=== PATIENT | female | born 1960 | race Caucasian/White ===

== ENCOUNTER 2017-10-26 14:39 | Inpatient (IN) | payer MEDICARE, SELFPAY ==
[2017-10-26] VITALS (23 sets, daily range): BP systolic 116–230; BP diastolic 53–115; PULSE 69–88; RESP 15–22; TEMP 36.7–36.8; O2SAT 96–99; BMI 50.5; BMI 50.6
--- NOTE | 2017-10-26 14:43 | NURSING ---
NO OLD EKGS STEMI ALERT CALLED
--- NOTE | 2017-10-26 14:49 | NURSING ---
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
--- NOTE | 2017-10-26 14:53 | ED.DCSUM_ITS ---
- ER Visit Summary Date of Service: 10/26/17 Chief Complaint: Chest pain History of Present Illness: The patient is a 56 F who presents to the emergency department with chest pain. Patient has a history of hypertension and smoking. She states that she woke this morning and was having some pain in her left jaw. She describes it as a squeezing type pain. She states that it would wax and wane and it would become more severe. She states the pain migrated to her chest on the way here. She was nauseated with some shortness of breath. She denies any history of prior [place]. She has had prior stenting of her iliac artery , but no cardiac stenting. She denies any recent stress test or heart catheterization. She states she has never had pain like this before. Physical Examination: Vital signs reviewed General: Well-nourished, well-developed Head: Normocephalic, atraumatic Eyes: Pupils equal and reactive, extraocular muscles intact Neck, supple, no lymphadenopathy Heart: Regular rate and rhythm Respiratory: No distress, clear bilaterally Abdomen: Soft, nontender, nondistended, no peritoneal signs Back: Nontender Extremities: Nontender, no edema, no cords Skin: Normal color no rash Neuro: Alert and oriented, no focal or lateralizing deficits Test Results: EKG demonstrates acute inferior myocardial infarction. Screening labs are pending. Emergency Department Course and Treatment: Patient was identified as an acute STEMI. I did review the EKG and patient was discussed immediately with Dr. Her. She was given aspirin, heparin, and Brilinta. The patient will be transported immediately to the [facility] for attempted angioplasty and revascularization per cardiology. She was transported from the emergency department within 10 minutes. Treatment Plan: [] Disposition: Transfer to [facility] Impression: 1. Acute inferior STEMI This note was generated with [employer] dictation software. It may contain incorrect words, spelling, and punctuation that were not noted in review of the chart prior to signing ED Disposition - Plan for ED Patient: Chief Complaint: Chest Pain
[2017-10-26 14:54] LABS: Absolute Lymphocyte Count 4.62 X10^3/ul (0.83-4.51); Absolute Neutrophil Count 6.6 X10^3/uL (2.0-7.7); Basophil# 0.05 X10^3/uL; Basophil% 0.4 % (0-1); Eosinophil# 0.33 X10^3/uL; Eosinophils% 2.6 % (0-5); Hemoglobin 14.6 g/dl (12.0-15.0); Lymphocyte # 4.62 X10^3/ul (4.0); Lymphocyte % 36.4 % (19-41); Mean Corp Hgb Conc 32.4 g/gl (32-36); Mean Corpuscular Hgb 30.5 pg (27.0-32.0); Mean Corpuscular Volume 94.1 fL (81-99); Mean Platelet Vol. 10.2 fl (6.2-12.0); Monocyte# 1.09 X10^3/uL; Monocyte% 8.6 % (0-10); Neutrophil # 6.57 X10^3/uL (2.7-7.7); Neutrophil % 51.7 % (47-70); Platelet Count 339 K/mm3 (150-450); RBC Distribution Width CV 16.1 % (11.6-14.6); RBC Distribution Width SD 54.4 fl (35.1-43.9); Red Blood Count 4.78 M/mm3 (4.2-5.4); White Blood Count 12.7 K/mm3 (4.4-11.0)
[2017-10-26 14:55] LABS: POSITIVE COUNT NO; POSITIVE DIFFERENTIAL NO; POSITIVE MORPHOLOGY NO
[2017-10-26 15:05] LABS: Prothrombin Time (Protime)PT. 12.8 SECONDS (11.7-14.9)
[2017-10-26 15:11] LABS: Anion Gap 8 (5-15); BUN 12 mg/dL (7-18); BUN/Creat Ratio 10.9 RATIO (10-20); Calcium,Total 8.7 mg/dL (8.5-10.1); Chloride 107 mmol/L (98-107); EST Glomerular Filtration Rate 54 mL/min (>60); Est Glom Filt Rate - Afr Amer 66 mL/min (>60); Glucose 118 mg/dL (74-106); Potassium 3.7 mmol/L (3.5-5.1); Sodium Level 141 mmol/L (136-145)
[2017-10-26 15:34] LABS: Pregnancy, Serum, hCG Quali. NEGATIVE Negative (0-9 Nonpreg)
--- NOTE | 2017-10-26 16:30 | RAD_ITS ---
STUDY: X-RAY CHEST REASON FOR EXAM: Female, 56 years old. Post cardiac catheterization TECHNIQUE: Single frontal view COMPARISON: None. FINDINGS: The lungs are clear and expanded. There is no demonstrated pleural abnormality. Borderline size heart. Normal mediastinum and filippo. Normal visualized pulmonary arteries. Normal visualized aortic arch and descending thoracic aorta. Mild degenerative changes of the thoracic spine. Normal visualized ribs, clavicles, and shoulders. There is no demonstrated abnormality of the visualized soft tissue structures of the upper abdomen. RAD/Chest 1 View (Portable) IMPRESSION: No acute pulmonary pathology. Borderline cardiac shadow. Electronically Signed: Kwasi Colbert DO at 19:15 EDT Tel [phone], Service support ,
--- NOTE | 2017-10-26 16:30 | EKG12_ITS ---
Test Reason : CP Blood Pressure : / mmHG Vent. Rate : 070 BPM Atrial Rate : 070 BPM P-R Int : 130 ms QRS Dur : 092 ms QT Int : 422 ms P-R-T Axes : 068 056 082 degrees QTc Int : 455 ms AGE AND GENDER SPECIFIC ECG ANALYSIS Normal sinus rhythm with sinus arrhythmia Inferior infarct , possibly acute ACUTE [place] / STEMI Confirmed by RICKY GARCIA, TANK ([id number]), editorial cartoonist DARION CARLOS ([id number]) on 11/06/2017 2:07:12 PM Referred By: Oneal Her Confirmed By:TANK GARCÍA MD
--- NOTE | 2017-10-26 17:00 | EKG12_ITS ---
Test Reason : POST PCI Blood Pressure : / mmHG Vent. Rate : 067 BPM Atrial Rate : 067 BPM P-R Int : 136 ms QRS Dur : 084 ms QT Int : 428 ms P-R-T Axes : 063 063 060 degrees QTc Int : 452 ms Normal sinus rhythm with sinus arrhythmia Normal ECG When compared with ECG of 26-OCT-2017 14:40, MANUAL COMPARISON REQUIRED, DATA IS UNCONFIRMED Confirmed by RICKY GARCIA, TANK ([id number]), greeting card editor DARION CARLOS ([id number]) on 10/31/2017 1:50:28 PM Referred By: Oneal Her Confirmed By:TANK GARCÍA MD
[2017-10-26 17:06] LABS: ACT Activated Clotting Time 191 sec (74-137)
[2017-10-26 17:06] LABS: ACT Activated Clotting Time 180 sec (74-137)
[2017-10-26 17:06] LABS: ACT Activated Clotting Time 186 sec (74-137)
[2017-10-26 17:44] LABS: CPK Total, Creatine Kinase 50 U/L (26-192)
[2017-10-26 17:55] LABS: Hematocrit 41.5 % (37-47); Hemoglobin 13.4 g/dl (12.0-15.0); Mean Corp Hgb Conc 32.3 g/gl (32-36); Mean Corpuscular Hgb 30.3 pg (27.0-32.0); Mean Corpuscular Volume 93.9 fL (81-99); Mean Platelet Vol. 10.5 fl (6.2-12.0); Platelet Count 310 K/mm3 (150-450); RBC Distribution Width SD 53.6 fl (35.1-43.9); Red Blood Count 4.42 M/mm3 (4.2-5.4); White Blood Count 9.6 K/mm3 (4.4-11.0)
[2017-10-26 18:03] LABS: Scan Indicated on CBC? Y/N NO
--- NOTE | 2017-10-26 18:04 | PCM.HP.STD ---
Problem List (1) CAD (coronary artery disease) Status: Chronic (2) Hypertension Status: Chronic (3) Obesity Status: Chronic History of Present Illness Date of Admission: 10/26/17 Chief Complaint: Chest pain The patient is a 56 year old F with past medical history of coronary artery disease post previous stenting RCA and hypertension who presented to the emergency room with chief complaint of midsternal chest pain. It started as a squeezing left jaw pain when she woke up this morning , she then later developed midsternal chest pain and then decided to come to the emergency room for evaluation. Was associated with nausea and shortness of breath. Emergency room she was noted to have ST elevation myocardial infarction and she was immediately sent to the heart catheterization suite and underwent left heart catheterization showing in-stent stenosis of her distal RCA for which she underwent PCI with stent placement. She was then transferred to the ICU for further management. When I saw her then, she denied any chest pain, shortness of breath or palpitations. Her blood pressure was significantly elevated and she was placed on nitroglycerin drip. Past Medical History Past Medical History (Chronic Problems): Chronic Problems CAD (coronary artery disease) (Chronic) Hypertension (Chronic) Obesity (Chronic) Allergies No Known Allergies Allergy (Verified 04/27/17 23:18) Home Medications: Ambulatory Orders Medication Instructions Recorded Metoprolol(XL)Succ [Toprol Xl 25 mg PO BID 04/27/17 (Beta Roque)] Albuterol Inhaler [Ventolin Hfa 2 puff INHALATION Q4H PRN PRN 10/26/17 (SP)] Smoking Status: Current every day smoker - *Family History Maternal History Items: No pertinent history Review of Systems Comment: All Systems were reviewed with pertinent positives mentioned in the HPI above. VTE Information - Inpt Only VTE Present on Admission: No - Physical Exam General: Alert, Oriented x3 HEENT: Atraumatic Oral: Moist Mucosa Neck: Supple, No JVD Lungs: Clear to auscultation Cardiovascular: Regular rate, Normal S1, Normal S2 Abdomen: Bowel Sounds Present, Soft Extremities: No edema Vital Signs Pulse Resp BP 69 15 171/86 H 10/26/17 17:21 10/26/17 14:42 10/26/17 17:21 Oxygen Flow Rate (L/min) 2 Oxygen Delivery Method Nasal Cannula Weight: 121.4 kg Body Mass Index (BMI) 50.5 Laboratory Tests Past 24 Hrs 10/26/17 10/26/17 10/26/17 16:08 16:35 16:45 WBC RBC Hgb Hct MCV MCH MCHC RDW RDW Differential Plt Count MPV Activated Clotting Time 186 H 191 H 180 H Total Creatine Kinase MRSA (PCR) 10/26/17 10/26/17 10/26/17 17:00 17:10 17:10 WBC 9.6 RBC 4.42 Hgb 13.4 Hct 41.5 MCV 93.9 MCH 30.3 MCHC 32.3 RDW 16.0 H RDW Differential 53.6 H Plt Count 310 MPV 10.5 Activated Clotting Time Total Creatine Kinase 50 MRSA (PCR) Pending Assessment/Plan 1. Acute STEMI; s/p PTCA with stenting of RCA, we will continue on guideline directed medical therapy. 2. CAD s/p previous RCA stent, she is found to have in-stent stenosis and has been restented as above. She is recommended to comply with medical therapy and quit smoking, we will obtain fasting lipids in a.m. 3. Essential hypertension, uncontrolled; the patient has been started on Coreg and lisinopril, will attempt to wean off the nitro drip. 4. Nicotine dependency; she is recommended to quit smoking, she is in precontemplation stage of change, we will place her on nicotine transdermal patch. 5. Morbid Obesity; the patient is recommended to lose weight. 6. DVT prophylaxis with Lovenox.
[2017-10-26] MEDS: diazePAM 5 MG Tablet PO (18:56)
[2017-10-26] MEDS: Nitrofurantoin Macrocrystals 100 MG Capsule PO (20:59)
[2017-10-26] MEDS: Carvedilol 6.25 MG Tablet PO (21:00)
[2017-10-26] MEDS: TICAGRELOR 90 MG TABLET PO (21:00)
[2017-10-26] MEDS: Atorvastatin Calcium 80 MG Tablet PO (21:00)
[2017-10-26 21:06] LABS: M R Staph aureus DNA By PCR Negative (Negative); Probe Check PASS; Specimen Processing Control PASS
[2017-10-26 22:15] LABS: ACT Activated Clotting Time 142 sec (74-137)
[2017-10-26 23:09] LABS: Hematocrit 38.1 % (37-47); Hemoglobin 12.3 g/dl (12.0-15.0); Mean Corp Hgb Conc 32.3 g/gl (32-36); Mean Corpuscular Hgb 30.3 pg (27.0-32.0); Mean Corpuscular Volume 93.8 fL (81-99); Mean Platelet Vol. 10.3 fl (6.2-12.0); Platelet Count 250 K/mm3 (150-450); RBC Distribution Width CV 15.9 % (11.6-14.6); RBC Distribution Width SD 53.6 fl (35.1-43.9); Red Blood Count 4.06 M/mm3 (4.2-5.4); White Blood Count 11.1 K/mm3 (4.4-11.0)
[2017-10-26 23:11] LABS: Scan Indicated on CBC? Y/N NO
[2017-10-26 23:34] LABS: CPK Total, Creatine Kinase 58 U/L (26-192)
[2017-10-27] VITALS (22 sets, daily range): BP systolic 105–159; BP diastolic 44–80; PULSE 77–95; RESP 14–25; TEMP 36.4–37.2; O2SAT 92–97
[2017-10-27 01:21] LABS: Bedside Glucose 130 mg/dL (70-110)
[2017-10-27] MEDS: diazePAM 5 MG Tablet PO ×2 (02:16→08:50)
[2017-10-27 02:51] LABS: Bedside Glucose 130 mg/dL (70-110)
[2017-10-27] MEDS: 0.9% NaCl Peripheral Flush Adult/Peds IV (04:27)
[2017-10-27 04:36] LABS: Hematocrit 37.6 % (37-47); Hemoglobin 12.2 g/dl (12.0-15.0); Mean Corp Hgb Conc 32.4 g/gl (32-36); Mean Corpuscular Hgb 30.4 pg (27.0-32.0); Mean Corpuscular Volume 93.8 fL (81-99); Platelet Count 260 K/mm3 (150-450); RBC Distribution Width CV 15.9 % (11.6-14.6); RBC Distribution Width SD 52.9 fl (35.1-43.9); Red Blood Count 4.01 M/mm3 (4.2-5.4); Scan Indicated on CBC? Y/N NO; White Blood Count 9.8 K/mm3 (4.4-11.0)
[2017-10-27 04:50] LABS: CPK Total, Creatine Kinase 62 U/L (26-192)
[2017-10-27 04:53] LABS: Anion Gap 9 (5-15); BUN 13 mg/dL (7-18); Calcium,Total 7.9 mg/dL (8.5-10.1); Chloride 109 mmol/L (98-107); Cholesterol 171 mg/dL (200); EST Glomerular Filtration Rate 61 mL/min (>60); Est Glom Filt Rate - Afr Amer 74 mL/min (>60); Glucose 141 mg/dL (74-106); High Density Lipoprotein 37 mg/dL; Potassium 3.8 mmol/L (3.5-5.1); Sodium Level 141 mmol/L (136-145); Triglycerides 111 mg/dL; Very Low Density Lipoprotein 22 mg/dL (5-40)
--- NOTE | 2017-10-27 05:55 | EKG12_ITS ---
Test Reason : AM EKG Blood Pressure : / mmHG Vent. Rate : 087 BPM Atrial Rate : 087 BPM P-R Int : 138 ms QRS Dur : 084 ms QT Int : 408 ms P-R-T Axes : 059 047 059 degrees QTc Int : 490 ms Normal sinus rhythm Prolonged QT Abnormal ECG When compared with ECG of 26-OCT-2017 14:40, MANUAL COMPARISON REQUIRED, DATA IS UNCONFIRMED Confirmed by RICKY GARCIA, TANK ([id number]), technical editor DARION CARLOS ([id number]) on 10/31/2017 1:50:01 PM Referred By: Oneal Her Confirmed By:TANK GARCÍA MD
[2017-10-27] MEDS: Acetaminophen 325 MG Tablet PO (07:50)
[2017-10-27] MEDS: CHLORHEXIDINE GLUC 2% CLOTH 1 EACH TOWELETTE TOPICAL (07:51)
[2017-10-27] MEDS: Aspirin E.C. 81 MG Tablet PO (07:51)
[2017-10-27] MEDS: TICAGRELOR 90 MG TABLET PO (08:50)
[2017-10-27] MEDS: Carvedilol 6.25 MG Tablet PO (08:50)
--- NOTE | 2017-10-27 08:51 | CRPHASE1 ---
Patient Data/Charges Information Resources Manager:: Oneal Her PCP:: Taye Carrillo Date/Diagnosis #1:: Cath w/Int/PCI Risk Factors/Lifestyle Smoking Status: Current every day smoker Hx Hypertension: Yes Hx Diabetes Mellitus Type 2: Yes - Pre diabetic Hx Metabolic Disorders: Yes Hx Obesity: Yes Weight:: 121 kg Risk Factor for Sedentary Lifestyle: Highest Risk Family History: Cancer, Heart Disease Past Cardiac Illness: Coronary Artery Disease, Previous PCI w/Stent Laboratory Values: Cardiac Rehab Phase I Labs Triglycerides 111 mg/dL (-199) 10/27/17 04:25 Cholesterol 171 mg/dL (200) 10/27/17 04:25 LDL Cholesterol 112 mg/dL (0-130) 10/27/17 04:25 HDL Cholesterol 37 mg/dL (40-) L 10/27/17 04:25 Phase I Education Given On:: Nutrition, Antiplatelet medication Issues Affecting Care:: None Knowledge of Condition:: Yes - needs reinforcment Hospital Course Presenting Symptoms:: jaw pain, sweating Medical/Surgical History [place]:: No Angina:: Yes CAD:: Yes COPD:: No Asthma:: No Diabetes Type II:: Yes - pre-diabetic Hypertension:: Yes PE:: No PVD:: Yes Arthritis:: Yes GI:: No GERD:: No Cancer:: No Renal:: Yes - kidney stones Thyroid:: No CABG: No PTCA:: Yes Pacemaker:: No Orthopedic:: Yes - degenerative joint disease Discharge/Home/Social Eval Discharge Disposition: Home Marital Status:
--- NOTE | 2017-10-27 08:57 | CRPHASE1_ITS ---
Patient Data/Charges Carpet Installer Helper:: Oneal Her PCP:: Taye Carrillo Date/Diagnosis #1:: Cath w/Int/PCI Risk Factors/Lifestyle Smoking Status: Current every day smoker Hx Hypertension: Yes Hx Diabetes Mellitus Type 2: Yes - Pre diabetic Hx Metabolic Disorders: Yes Hx Obesity: Yes Weight:: 121 kg Risk Factor for Sedentary Lifestyle: Highest Risk Family History: Cancer, Heart Disease Past Cardiac Illness: Coronary Artery Disease, Previous PCI w/Stent Laboratory Values: Cardiac Rehab Phase I Labs Triglycerides 111 mg/dL (-199) 10/27/17 04:25 Cholesterol 171 mg/dL (200) 10/27/17 04:25 LDL Cholesterol 112 mg/dL (0-130) 10/27/17 04:25 HDL Cholesterol 37 mg/dL (40-) L 10/27/17 04:25 Phase I Education Given On:: Nutrition, Antiplatelet medication Issues Affecting Care:: None Knowledge of Condition:: Yes - needs reinforcment Hospital Course Presenting Symptoms:: jaw pain, sweating Medical/Surgical History [place]:: No Angina:: Yes CAD:: Yes COPD:: No Asthma:: No Diabetes Type II:: Yes - pre-diabetic Hypertension:: Yes PE:: No PVD:: Yes Arthritis:: Yes GI:: No GERD:: No Cancer:: No Renal:: Yes - kidney stones Thyroid:: No CABG: No PTCA:: Yes Pacemaker:: No Orthopedic:: Yes - degenerative joint disease Discharge/Home/Social Eval Discharge Disposition: Home Marital Status:
--- NOTE | 2017-10-27 08:59 | CRPH1.INST_ITS ---
General Education CAD and cardiac anatomy and function:: Needs reinforcement Explanation of diagnoses and procedures:: Needs reinforcement Sign/Symptoms of [place]:: Not instructed Antiplatelet therapy: Needs reinforcement Proper use of NTG-SL: Needs reinforcement Emergency procedures and activation of EMS: Patient communicates acknowledgment , Needs reinforcement Compliance of all prescribed medications: Patient communicates acknowledgment Smoking Patient Nicotine/Smoking Risk Factors Are:: Cigarettes Nicotine/Smoking Response Code:: Not instructed Dyslipidemia Recommendations Include:: Lipid profile not available Overweight/Obesity Patient Overweight/Obesity Risk Factors Are:: Obesity - > or = 30 Overweight/Obesity:: Not instructed Hypertension Hypertension:: Needs reinforcement Heart Disease Patient Heart Disease Risk Factors Are:: Family history of heart disease < 65 years old - mother, Previous cardiac event - stent 2010 Heart Disease Response Code:: Needs reinforcement Diabetes Patient Diabetes Risk Factors Are:: Elevated blood sugars - pt states pre diabetic Metabolic Syndrome Metabolic Syndrome Response Code:: Needs reinforcement Sedentary Patient Sedentary Risk Factors Are:: Lack of regular exercise Sedentary Response Code:: Needs reinforcement Stress Stress Response Code:: Not instructed
[2017-10-27] MEDS: HYDROcodone Bitartrate/Apap 5/325 Tablet PO ×2 (09:32→14:14)
--- NOTE | 2017-10-27 09:33 | DCINST_ITS ---
- Discharge Diagnoses Current Active Problems: Current Active and Chronic Problems CAD (coronary artery disease) (Chronic) Hypertension (Chronic) Obesity (Chronic) Reason(s) for Visit for Discharge Instructions: Chest pain You will use the following diet at home:: Calorie/Carbohydrate Controlled ( specify 1200, 1400, etc), Cardiac Your food should be the consistency of: Regular Your liquids should be the consistency of: Regular/Thin Discharge Activity: Return to Normal Activity Additional Instructions: You are strongly advised to stop smoking. Take all your medications as prescribed. Follow-up with DR. Her and your primary care doctor. Follow all instructions for post heart attack. You need to lose weight and have your doctor keep an eye on your blood glucose by repeating testing in the office. Allergies/Adverse Reactions: Allergies No Known Allergies Allergy (Verified 04/27/17 23:18) Medications to take at Discharge Albuterol Inhaler [Ventolin Hfa] 2 puff INHALATION Q4H PRN PRN 10/26/17 Aspirin E.C. [Ecotrin] 81 mg PO DAILY@0800 #30 tab 10/27/17 Atorvastatin Calcium [Lipitor] 80 mg PO QHS #30 tab 10/27/17 Carvedilol [Coreg (Beta Roque)] 6.25 mg PO BID #60 tab 10/27/17 Ticagrelor [Brilinta] 90 mg PO BID #60 tab 10/27/17 Tramadol HCl [Ultram] 50 mg PO 4X/DAY PRN #20 tab 10/27/17 Valsartan [Diovan] 80 mg PO DAILY #30 tab 10/27/17 The following prescriptions were given: Aspirin E.C. [Ecotrin] 81 mg PO DAILY@0800 #30 tab Atorvastatin Calcium [Lipitor] 80 mg PO QHS #30 tab Valsartan [Diovan] 80 mg PO DAILY #30 tab Carvedilol [Coreg (Beta Roque)] 6.25 mg PO BID #60 tab Ticagrelor [Brilinta] 90 mg PO BID #60 tab Tramadol HCl [Ultram] 50 mg PO 4X/DAY PRN #20 tab PRN Reason: Pain Primary Care Physician: Taye Carrillo MD [Primary Care Provider] - Please follow up with your Primary Care Physician in: within 2 weeks Please Follow Up With: Oneal Her MD When: as scheduled Please Follow Up With: Delfino Bonilla MD When: within 2 weeks Proposed Discharge Date: 10/27/17
--- NOTE | 2017-10-27 09:54 | ECHOCS_ITS ---
Reason For Study: CAD/ASHD Procedure This was a 2D Doppler, Color Flow transthoracic echocardiogram. Exam performed portable in ICU/CCU. Left Ventricle Mild concentric left ventricular hypertrophy. The estimated ejection fraction is 65 %. Stage 1 diastolic dysfunction. No regional wall motion abnormalities noted. Right Ventricle Normal size and thickness. Normal systolic function. Atria Normal left atrium. Normal right atrium. Normal atrial septum. Mitral Valve The mitral valve is structurally normal. No prolapse or stenosis seen. Tricuspid Valve Normal tricuspid valve. No tricuspid valve insufficiency. Unable to estimate RV systolic pressure/pulmonary artery pressure due to technically difficult study. Aortic Valve Normal aortic valve. Trisinus/trileaflet aortic valve. Pulmonic Valve Normal pulmonic valve. Great Vessels Normal aortic root. Normal arch. Normal inferior vena cava. Inferior vena cava collapse with sniff. Pericardium/Pleural No pericardial effusion. Medication Definity0.3ml given slow IV push to enhance endocardial definition. MMode/2D Measurements & Calculations LVIDd: 4.2 cm IVSd: 1.3 cm Ao root diam: 3.0 cm LVIDs: 2.2 cm LVPWd: 1.2 cm LA dimension: 4.0 cm RVDd: 3.7 cm FS: 48.4 % LAV(MOD-bp): 33.9 ml LA A4 area: 13.7 cm2 RA A4 area: 10.8 cm2 LAV(MOD-bp) Indexed: 15.9 ml/m2 LAV(MOD-sp2): 38.3 ml LAV(MOD-sp4): 30.1 ml Doppler Measurements & Calculations MV E max charlie: 86.8 cm/sec Lat Peak E' Charlie: 9.7 cm/sec Med Peak E' Charlie: 6.6 cm/sec MV A max charlie: 107.9 cm/sec E/E' lat: 9.0 E/E' med: 13.2 MV E/A: 0.80 Ao V2 max: 145.5 cm/sec LV V1 max: 119.5 cm/sec PA V2 max: 76.1 cm/sec Ao max P.5 mmHg LV V1 max P.7 mmHg Ao V2 mean: 100.3 cm/sec Ao mean P.6 mmHg Ao V2 VTI: 27.8 cm Interpretation Summary Mild concentric left ventricular hypertrophy. The estimated ejection fraction is 65 %. Stage 1 diastolic dysfunction. Unable to estimate RV systolic pressure/pulmonary artery pressure due to technically difficult study. There is no comparison study available. Ordering Physician: Oneal Her Referring Physician: Taye Carrillo Performed By: Lauren Aguilar RDCS, RVT
--- NOTE | 2017-10-27 10:00 | PN.CARD_ITS ---
Subjectve: Patient doing well this morning, no further chest pain. Nitro drip weaning off. CKs are negative. Bilateral groins are clean/dry/intact, without thrills or bruits. Left brachial artery is somewhat tender but no evidence of hematoma , and excellent 2+ pulses in her radial area. EKG shows normal sinus rhythm with complete resolution of inferior ST segment elevation. Hemoglobin and creatinine are within nominal limits. Objective: Vital Signs Temp Pulse Resp BP Pulse Ox 98.0 F 89 16 105/73 97 10/27/17 07:00 10/27/17 08:00 10/27/17 08:00 10/27/17 09:00 10/27/17 08:00 Oxygen Flow Rate (L/min) 2 Oxygen Delivery Method Room Air Weight: 266 lb 12.149 oz Body Mass Index (BMI) 50.5 Intake and Output for Last 24 Hours 10/25/17 10/26/17 10/27/17 23:59 23:59 23:59 Intake Total 1605.5 / 1605.5 135.6 / 135.6 Output Total 950 / 950 250 / 250 Balance 655.5 / 655.5 -114.4 / -114.4 General: Awake, Alert, Oriented x 3 HEENT: PERRL, EOMI, Sclera Non Icteric Neck: Supple, Good ROM, No Lymph Node Enlargement Lungs: Clear to auscultation Cardiovascular: Regular Rhythm, Normal S1, Normal S2, No Murmurs, No Rubs, No Gallops Vascular: No Carotid Bruits, Normal Femoral Pulses, Normal Radial Pulses, Normal Dorsalis Pedal Pulse, Normal Posterior Tibial Pulses Abdomen: Bowel Sounds Present, Soft, Non Tender, No HSM, No Organomegaly Extremities: No Cyanosis, No Clubbing, No edema Neurological: No Focal Motor or Sensory Deficit 10/26/17 17:10: WBC 9.6, RBC 4.42, Hgb 13.4, Hct 41.5, MCV 93.9, MCH 30.3, MCHC 32.3, RDW 16.0 H, RDW Differential 53.6 H, Plt Count 310, MPV 10.5 10/26/17 22:45: WBC 11.1 H, RBC 4.06 L, Hgb 12.3, Hct 38.1, MCV 93.8, MCH 30.3, MCHC 32.3, RDW 15.9 H, RDW Differential 53.6 H, Plt Count 250, MPV 10.3 10/27/17 04:25: Sodium 141, Potassium 3.8, Chloride 109 H, Carbon Dioxide 23.0, Anion Gap 9, BUN 13, Creatinine 1.00, Est GFR (MDRD) Af Amer 74, Est GFR (MDRD) Non-Af 61, BUN/Creatinine Ratio 13.0, Glucose 141 H, Calcium 7.9 L, Triglycerides 111, Cholesterol 171, LDL Cholesterol 112, VLDL Cholesterol 22, HDL Cholesterol 37 L 10/27/17 04:25: WBC 9.8, RBC 4.01 L, Hgb 12.2, Hct 37.6, MCV 93.8, MCH 30.4, MCHC 32.4, RDW 15.9 H, RDW Differential 52.9 H, Plt Count 260, MPV 10.0 Rhythm: EKG: ECHO: Pending Stress Test: Cardiac Cath: PCI: CT Surgery: Holter monitor: EPS: PPM: CXR: Chest CT Scan: Medical Necessity - Tobacco Use Smoking Status: Current every day smoker Assessment/Plan 1. Acute coronary syndrome: The patient had hypertensive induced acute coronary syndrome with dynamic inferior ST segment elevation and critical distal RCA stenosis just downstream from a previously placed stent several years ago. The patient's case was prolonged and complicated due to what appears to be severe bilateral common iliac stenoses requiring us to emergently go through her left brachial area. All access sites are clean/dry/intact, and her CKs are negative. We are currently weaning her off her nitroglycerin drip and initiating Coreg, Diovan, Brilinta and baby aspirin. She will undergo a 2D echo with Doppler today, but her LV function was intact at the end of the procedure last evening, and hope is that it will remain normal given the fact that she had no CK release. We will attempt to wean the patient off her nitroglycerin drip, and if her blood pressure is acceptable we will discharge her later on today. She will follow-up with me going forward. She requires no further catheterization, angioplasty, stress test or other evaluation. 2. Peripheral vascular disease: Recommend the patient be set up to see Dr. Bonilla for a diagnostic peripheral angiogram and/or vascular surgery given her history of claudication symptoms and previous iliac stent on the left side according the patient. Recommend she be remain on baby aspirin and Brilinta going forward. 3. Hyperlipidemia: Patient requires aggressive LDL reduction given her cardiovascular disease. We initiated Lipitor 80 mg p.o. nightly, and we will repeat profile in 6 weeks time. 4. Tobacco cessation: I had a long and thorough discussion with the patient regarding tobacco cessation, and strongly recommended that she quit tobacco altogether. Patient is voiced understanding and agrees to comply. 5. Patient may be discharged home later today when she has been off her nitroglycerin if blood pressure is stable, and after echocardiogram is been completed. Thank you very much for the opportunity to precipitate the cardiac care of your patient. She will follow-up with us in the office going forward in 2 weeks time. Code Visit Inpatient E&M: 99965 Subs Hosp L2
[2017-10-27 10:05] LABS: Hemoglobin A1c 6.3 % (4.2-6.3)
--- NOTE | 2017-10-27 10:34 | NURSING ---
Echo in progress
--- NOTE | 2017-10-27 11:29 | CASEMGMT ---
See RN CM Assessment Link. DC PLAN: Home on discharge. -Intro role of CM to patient and her . She is disabled, has MCR but did not sign up for MCR part D due to cost. -[employer] savings card given to pt for 30 day free trial. -Spoke w/pt re: applying for AIDEE. Pt states due to her also not working, their household income is around $1100. Call to [employer]. They will see pt after lunch and assist with aidee application. Scott SHAHN RN ACM
--- NOTE | 2017-10-27 12:37 | CL.I_ITS ---
Patient Name: CLAUDIA LOGAN Study Date: 10/26/2017 Performing: Oneal Her MD Ht: inches cm : 1960 Wt: 235.3 lbs 106.59 kg Age: 56 Gender: female BSA: PROCEDURE(S) PERFORMED [id number]/COR/LV [id number], ANDRES AND/OR PTCA, ARTERY OR GRAFT, SINGLE VESSEL CLINICAL PROFILE AND CO-MORBIDITIES Patient presents with STEMI for emergent cardiac cath. INDICATIONS: Unstable Angina Stress/Imaging Stress/Image Study Performed: No Angina Classification Anginal Classification w/in 2 Weeks: CCS IV Comorbidities/Risk Factors: Hypertension Current/Recent Smoker (< 1year) Dyslipidemia Prior PCI Peripheral Arterial Disease CONCLUSIONS Normal Left Ventricular systolic function Non obstructive coronary arteries Single vessel CAD of the distal RCA with distal ISR prior to bifurcation of PDA. Successful PTCA/ANDRES of the distal RCA with a 2.5 x 8 Promus Synergy; 85%-->0%, no dissection. RECOMMENDATIONS Referred for immediate PCI ASA Indefinitely Highly recommend quitting all tobacco products Follow up with primary photographic machine operator Risk factor modification ASA Indefinitley Plavix for at least 12 months Routine post interventional care Refer for Outpatient Cardiac Rehab Manual sheath removal per protocol Follow up with Dr. Her Pt had prolonged revascularization due to severe bilateral femoral artery access challenges. Pt had previous left iliac stent which appears to be occluded and unable to cannulate RFA despite glide wire , majic torque. Pt appears to have bilat iliac occlusion or at least severe PVD. Emergent PCI perfo rmed via emergent access to left brachial approach. DESCRIPTION OF PROCEDURE The patient arrived to the procedure lab. The risks and benefits of the procedure as well as a full d escription of our services here and lack of surgical backup were fully explained to the patient and/o r their significant other prior to the catheterization. The Timeout was completed, verifying the jimmie ect patient and procedure. The patient's procedural site was prepped and draped in the usual fashion. Local anesthetic was given subcutaneously to right groin region with Lidocaine 2%. Local anesthetic was given subcutaneously to left groin region with Lidocaine 2%. Local anesthetic was given subcutane ously to right groin region with Lidocaine 2%. Local anesthetic was given subcutaneously to left brac hial region with Lidocaine 2%. Using a modified Seldinger technique, arterial access was obtained via the left femoral artery, a 4Fr sheath was inserted, arterial access was obtained via the left brachi al artery, a 6Fr sheath was inserted.. Left Coronary Artery selective angiography was performed in m ultiple views using a 4 Fr. JL5 catheter. Right Coronary Artery selective angiography was then perfor med in multiple views using a 4 Fr. 3DRC catheter. Left Ventriculography was performed in CRAVEN project ion using a 4 Fr. Pigtail catheter. LV to AO pullback pressures were then recorded HS II Guide catheter was inserted and engaged into the RCA. runthrough Guide wire was advanced to the RCA. emerge 2.0x12 Balloon catheter was inserted. PTCA balloon inflated at 8 atms for 10 secs synerg y 2.5x8 Drug Eluting stent was inserted Angiogram performed pre stent deployment. Angiogram performed post stent deployment.. . The arterial sheath was pulled and manual compression applied until hemos tasis is achieved. left femoral. The arterial sheath was left in to be pulled in the unit / patient r oom- left brachial. CORONARY ANGIOGRAPHY DOMINANCE: Right Dominant LEFT HEART ASSESSMENT Left Ventricular Ejection Fraction: by LV Gram 65 % Elevated Left Ventricular End Diastolic Pressure Normal LV wall motion. Normal LV wall motion LEFT MAIN: Angiographically normal LEFT ANTERIOR DECENDING ARTERY: Mild luminal irregularities less than 30% CIRCUMFLEX ARTERY: Mild luminal irregularities less than 30% RIGHT CORONARY ARTERY: PROX RCA: 40 % Stenosis MID RCA: Mild luminal irregularities less than 30% DISTAL RCA: 85 % Stenosis INTERVENTION INFORMATION LESION SITE: RCA (Distal) Lesion Complexity: High/C, lesion at bifurcation: No, thrombus present: No, lesion length: 8 mm, danielle rit lesion: Yes, In-stent restenosis: Yes Pre Stenosis: 85 % Pre intervention LAN flow: 3 PROCEDURE: Drug Eluting Stent with pre dilatation. Post Stenosis: 0 % Post intervention LAN flow: 3 Lesion Devices: Frank Sci EMERGE MR 2.00x12 BALLOON Frank Sci Synergy MR ANDRES 2.50x08 COMPLICATIONS No Complications PROCEDURE MEDICATIONS Versed 1 mg IV Fentanyl 25 mcg IV Fentanyl 25 mcg IV Oxygen: 2 L/min via nasal cannula Brilinta 180 mg PO 10/26/2017 14:55:07 Baby Aspirin (81mg) 4 Tabs PO @ 10/26/2017 16:23:09 Heparin 6000 unit(s) IV 10/26/2017 15:40:47 Nitro 200 mcg IC 10/26/2017 15:52:30 Nitro glycerin 25mg / 250ml D5W @ 5 mcg/min IV started 10/26/2017 15:54:09 Nitro 200 mcg IC 10/26/2017 15:57:34 Nitro glycerin 25mg / 250ml D5W @ 10 mcg/min increased rate 10/26/2017 16:33:54 Nitro Tab 0.4 mg PO 10/26/2017 16:34:09 IV Bolus: .9 NaCl 1200 ml total 10/26/2017 15:15:32 SUMMARY OF HEMODYNAMIC DATA Time AIR REST ECG 14:53:51 AO 186/97 (134) SA 15:33:36 LV 192/11, 37 16:03:20 LV 188/9, 40 16:03:27 LVp 195/7, 34 16:03:37 AOp 190/96 (135) 16:03:42 ECG 16:20:31 AO 210/108 (147) 16:22:18 Signed By Oneal Her MD On 10/27/2017 12:37:13 Oneal Her MD
--- NOTE | 2017-10-27 14:04 | PCM.DC.SUM ---
Discharge Date and Diagnosis Date of Admission: 10/26/17 Date of Discharge: 10/27/17 - Primary Discharge Diagnosis Acute STEMI Hypertension, uncontrolled Hyperglycemia - Secondary Discharge Diagnosis Chronic Problems CAD (coronary artery disease) (Chronic) Hypertension (Chronic) Obesity (Chronic) Hospital Course and Treatment Imaging Results: 10/27/17 09:54 Echo Complete W/ Contrast [ECHO] Routine Cardiology Operations: None Procedures: 2-D Echocardiogram, Cardiac catheterization Summary of Care Provided: The patient is a 56 year old F with PMHx of CAD status post stent, hypertension, chronic nicotine use disorder who comes to the ED on 10/26/2017 with complaints of squeezing chest pain that radiated to the jaw, waxes and wanes. Patient was seen in the ED and had a EKG showing inferior [place]. A STEMI alert was called and patient was sent to the cardiac labor and delivery registered nurse. Findings showed single-vessel 85% stenosis of distal RCA, status post drug-eluting stent placement. Of note is that the brush sander was not able to approach the coronaries through the groin because of bilateral peripheral artery stenosis, patient will need to follow-up with Dr. Bonilla in the outpatient. Left brachial artery approach was used. Patient was counseled to avoid smoking. More than 5 minutes was spent in counseling the patient. She was offered nicotine patch and other replacements. She declined all of them on account of poor financial status. In this admission, prescription assistance was sought by drug abuse social worker, and patient had a Medicaid application done. Discharge Diet: Low fat/ Low Cholesterol, 2000 mg Sodium Diet Discharge Activity: Return to Normal Activity Home Medications: Medications to take at Discharge Albuterol Inhaler [Ventolin Hfa] 2 puff INHALATION Q4H PRN PRN 10/26/17 Aspirin E.C. [Ecotrin] 81 mg PO DAILY@0800 #30 tab 10/27/17 Atorvastatin Calcium [Lipitor] 80 mg PO QHS #30 tab 10/27/17 Carvedilol [Coreg (Beta Roque)] 6.25 mg PO BID #60 tab 10/27/17 Ticagrelor [Brilinta] 90 mg PO BID #60 tab 10/27/17 Tramadol HCl [Ultram] 50 mg PO 4X/DAY PRN #20 tab 10/27/17 Valsartan [Diovan] 80 mg PO DAILY #30 tab 03/23/18 Following Prescrptions Were Given to Patient: Aspirin E.C. [Ecotrin] 81 mg PO DAILY@0800 #30 tab Atorvastatin Calcium [Lipitor] 80 mg PO QHS #30 tab Valsartan [Diovan] 80 mg PO DAILY #30 tab Carvedilol [Coreg (Beta Roque)] 6.25 mg PO BID #60 tab Ticagrelor [Brilinta] 90 mg PO BID #60 tab Tramadol HCl [Ultram] 50 mg PO 4X/DAY PRN #20 tab PRN Reason: Pain Primary Care Physician: Taye Carrillo MD [Primary Care Provider] - Please follow up with your Primary Care Physician in: within 2 weeks Please Follow Up With: Oneal Her MD When: as scheduled Please Follow Up With: Delfino Bonilla MD When: within 2 weeks Disposition: Home Minutes spent on discharge:: 25 Patient Condition:: Stable Medical Necessity - Tobacco Use Smoking Status: Current every day smoker Tobacco Use: Cigarettes Meaningful Use Info Meaningful Use Diagnoses (Choose all that apply): AMI - AMI Aspirin given w/in 24hrs of arrival?: Yes ASA at discharge?: Yes Statins at discharge?: Yes Donnie/ARB at discharge?: Yes Beta Roque at discharge?: Yes Done w/ Acute [place] measure.: Yes - CHF DONNIE/ARB ordered at discharge?: Yes Code Visit Inpatient E&M: 46918 Disch Hosp Procedures: Other Procedure - See Report - Smoking cessation.
--- NOTE | 2017-10-27 14:07 | DS.PCM_ITS ---
Discharge Date and Diagnosis Date of Admission: 10/26/17 Date of Discharge: 10/27/17 - Primary Discharge Diagnosis Acute STEMI Hypertension, uncontrolled Hyperglycemia - Secondary Discharge Diagnosis Chronic Problems CAD (coronary artery disease) (Chronic) Hypertension (Chronic) Obesity (Chronic) Hospital Course and Treatment Imaging Results: 10/27/17 09:54 Echo Complete W/ Contrast [ECHO] Routine Cardiology Operations: None Procedures: 2-D Echocardiogram, Cardiac catheterization Summary of Care Provided: The patient is a 56 year old F with PMHx of CAD status post stent, hypertension , chronic nicotine use disorder who comes to the ED on 10/26/2017 with complaints of squeezing chest pain that radiated to the jaw, waxes and wanes. Patient was seen in the ED and had a EKG showing inferior [place]. A STEMI alert was called and patient was sent to the cardiac laboratory clerk. Findings showed single- vessel 85% stenosis of distal RCA, status post drug-eluting stent placement. Of note is that the photoengraving finisher was not able to approach the coronaries through the groin because of bilateral peripheral artery stenosis, patient will need to follow-up with Dr. Bonilla in the outpatient. Left brachial artery approach was used. Patient was counseled to avoid smoking. More than 5 minutes was spent in counseling the patient. She was offered nicotine patch and other replacements. She declined all of them on account of poor financial status. In this admission, prescription assistance was sought by social services specialist, and patient had a Medicaid application done. Discharge Diet: Low fat/ Low Cholesterol, 2000 mg Sodium Diet Discharge Activity: Return to Normal Activity Home Medications: Medications to take at Discharge Albuterol Inhaler [Ventolin Hfa] 2 puff INHALATION Q4H PRN PRN 10/26/17 Aspirin E.C. [Ecotrin] 81 mg PO DAILY@0800 #30 tab 10/27/17 Atorvastatin Calcium [Lipitor] 80 mg PO QHS #30 tab 10/27/17 Carvedilol [Coreg (Beta Roque)] 6.25 mg PO BID #60 tab 10/27/17 Ticagrelor [Brilinta] 90 mg PO BID #60 tab 10/27/17 Tramadol HCl [Ultram] 50 mg PO 4X/DAY PRN #20 tab 10/27/17 Valsartan [Diovan] 80 mg PO DAILY #30 tab 03/23/18 Following Prescrptions Were Given to Patient: Aspirin E.C. [Ecotrin] 81 mg PO DAILY@0800 #30 tab Atorvastatin Calcium [Lipitor] 80 mg PO QHS #30 tab Valsartan [Diovan] 80 mg PO DAILY #30 tab Carvedilol [Coreg (Beta Roque)] 6.25 mg PO BID #60 tab Ticagrelor [Brilinta] 90 mg PO BID #60 tab Tramadol HCl [Ultram] 50 mg PO 4X/DAY PRN #20 tab PRN Reason: Pain Primary Care Physician: Taye Carrillo MD [Primary Care Provider] - Please follow up with your Primary Care Physician in: within 2 weeks Please Follow Up With: Oneal Her MD When: as scheduled Please Follow Up With: Delfino Bonilla MD When: within 2 weeks Disposition: Home Minutes spent on discharge:: 25 Patient Condition:: Stable Medical Necessity - Tobacco Use Smoking Status: Current every day smoker Tobacco Use: Cigarettes Meaningful Use Info Meaningful Use Diagnoses (Choose all that apply): AMI - AMI Aspirin given w/in 24hrs of arrival?: Yes ASA at discharge?: Yes Statins at discharge?: Yes Donnie/ARB at discharge?: Yes Beta Roque at discharge?: Yes Done w/ Acute [place] measure.: Yes - CHF DONNIE/ARB ordered at discharge?: Yes Code Visit Inpatient E&M: 48142 Disch Hosp Procedures: Other Procedure - See Report - Smoking cessation.
--- NOTE | 2017-10-27 14:13 | CHAPLAIN ---
Type of Pastoral Visit _x_ Initial Visit ___ Follow-up Visit ___ On-call Visit ___ General Patient Visit ___ Spiritual Assessment ___ Family Conference ___ Bereavement ___ Rapid Response ___ Code Blue ___ Other (describe below) Pastoral Care Referral From _x__ Patient ___ Family ___ Nurse ___ Physician ___ Winch Operator ___ Private Advisor ___ Other (describe below) Sacrament/Intervention ___ Active listening ___ Anointing ___ Pentecostalism ___ Bereavement ___ Communion ___ Radha exploration ___ ___ Life review _x__ Prayer ___ Reconciliation ___ Sacrament of Sick _x__ Supportive presence ___ Wedding ___ Other (describe below) Pastoral Comments patient is tired and says she would just like a prayer; spouse is with pt; casual and brief visit
== END 2017-10-27 14:48 | disposition home or self-care (01) | DRG 247 ==
LOC: ED 14:48 → ICU 14:50
PROVIDERS: Internal Medicine Cardiovascular Disease; Admitting Provider Internal Medicine; Emergency Provider Emergency Medicine; Family Provider Family Medicine; PCP Family Medicine; Visit Provider Internal Medicine
DX: I21.19 ST elevation (STEMI) myocardial infarction involving other coronary artery of inferior wall (principal); E66.01 Morbid (severe) obesity due to excess calories; T82.858A Stenosis of other vascular prosthetic devices, implants and grafts, initial encounter; Z68.43 Body mass index [BMI] 50.0-59.9, adult; I73.9 Peripheral vascular disease, unspecified; E78.5 Hyperlipidemia, unspecified; I10 Essential (primary) hypertension; F17.210 Nicotine dependence, cigarettes, uncomplicated; I25.110 Atherosclerotic heart disease of native coronary artery with unstable angina pectoris
CPT/HCPCS: 71045; 80048; 80061; 82550; 82962; 83036; 84484; 84703; 85025; 85027; 85347; 85610; 85730; 87641; 92941; 93005; 93306; 93458; 99152; 99153; 99282; 99406; J3010; J7030; J7040; Q9957; Q9967; A4216; C1725; C1769; C1874; C1887; C1894; C8929; C9606

== ENCOUNTER → 2017-11-14 10:08 | Outpatient (CLI) | payer MEDICARE, SELFPAY ==
--- NOTE | 2017-11-14 10:19 | PCM.CR.HP2 ---
CR - History & Physical - General Arrival date:: 11/14/17 Arrival time:: 10:20 Date of Admission: 11/14/17 Referring Physician: Dr. Oneal Her Primary Diagnosis: STEMI f/b status post coronary stent - History of Present Cardiac Event Onset Date: Enter Onset Date of cardiac illnesses in Comment field below [place]:: Yes - STEMI 10/26/2017 PTCA:: Yes - 10/26/2017 Type of Symptoms:: chest pain history of hypertension and smoking. She states she woke up and was having some pain in left jaw which eventually migrated to the chest and arm/shoulder area. Interventions with present event:: heart cath procedure Were there any complications?: none - Medications Home Medications: Ambulatory Orders Medication Instructions Recorded Albuterol Inhaler [Ventolin Hfa] 2 puff INHALATION Q4H PRN PRN 10/26/17 Aspirin E.C. [Ecotrin] 81 mg PO DAILY@0800 #30 tab 10/27/17 Tramadol HCl [Ultram] 50 mg PO 4X/DAY PRN #20 tab 10/27/17 atorvastatin 80 mg tablet 80 mg PO QHS #30 tab 11/10/17 carvedilol 6.25 mg tablet 6.25 mg PO BID #60 tab 11/10/17 clopidogrel 75 mg tablet 75 mg PO QDAY #30 tab 11/10/17 furosemide 20 mg tablet 20 mg PO QDAY PRN #30 tab 11/10/17 valsartan 80 mg tablet 80 mg PO DAILY #30 tab 11/10/17 - Allergies Allergies/Adverse Reactions: Allergies No Known Allergies Allergy (Verified 11/10/17 09:19) - Sleep Disorder Evaluation Hx of Sleep Apnea: Yes Do you snore loudly (louder than talking or can be heard through closed doors)?: Yes - scheduled for sleep study Do you often feel tired/ fatigued/ sleepy during daytime?: Yes Has anyone observed you stop breathing during sleep?: No History of Hypertension (for STOP score): Yes STOP Results: Positive Advanced Directives - Advanced Directives Power of Visual Merchandising Coordinator: No Living Will: No Advance Directives Information Provided: No Advance Directives on File: No DNR Order?:: No Past Medical History - Problems and Co-Morbidities Problems & Co-Morbidities: Smoking - no pertinent family history provided., Dyslipidemia, Diabetes - considered borderline diabetic high glucose levels, Obesity, Hypertension, Sedentary Lifestyle - Past Medical Illness Past Medical Illness: Arthritis, Diabetes - borderline DM, Lung or Breathing Problems - unknown if diagnosed, Back Problems - degenerative disc disease, central tremors Other Medical Illnesses:: Current every day smoker and has been counselled by physician to complete smoking cessation. - Past Cardiac Illness Past Cardiac Illness: Ejection Fraction - 65% per LVEF during cath, Coronary Artery Disease, Previous PCI w/Stent - previous stents done in [place] 2001? - Other Other: Vision/Eye Problems - gets floaters occasionally - Cardiology Procedures/Interventions Cardiology Procedures/Interventions: Angioplasty, PCI w/Stenting, Heart Catheterization, Echocardiogram - Past Surgical History Surgical History: - - breast reduction, tubal ligation, history of gallstones Review of Systems - Review of Systems Hints: Right click = Denies (Slash). Left click = Reports ([place]) Review of Present Symptoms: Reports: Shortness of Breath at Rest, Shortness of Breath with Exertion, Operative Discomfort - Non-operative related discomfort/soreness in chest but denied pain., Dizziness/Lightheadedness, Fatigue, Appetite - Special Diet - Low fat low cholesterol low sodium <2000mg sodium diet., Sleep - Normal. Denies: Appetite - Normal - not a whole lot of appetite, some days do not feel like eating. Risk Factor Assessment - Chief Complaint Chief Complaint: Patient is apleasent 56 year old female of Dr. Oneal Her who presentst o cardiac rehab today following recent STEMI (acute coronary syndrome) and subsequent coroanry stenting done on 10/26/2017. - Pulse Pulse Rate: 78 - SpO2 97% room air Pulse Rhythm: Regular - Hypertension How long have you been treated?: long time, even before last coronary stent in 1999. On medication(s)?: Yes Blood Pressure Sitting - Left Arm: 168/70 - Stress Stress: Home/Family - Blood Cholesterol/Lipids Total Cholesterol (mg/dL) Goal = less than 200 mg/dL: 171 HDL Cholesterol (mg/dL) Goal = less than 40 mg/dL: 37 LDL Cholesterol (mg/dL) Goal = less than 70 mg/dL: 112 Triglycerides (mg/dL) Goal = less than 150 mg/dL: 111 - Diabetes Diabetic History: Type II - considered borderline DM due to hyperglycemia Nutrition Referral for Diabetes: Yes - Obesity Height: 5 ft 1 in Weight:: 250 lb Weight in Pounds: 250.0 lbs Body Mass Index (BMI): 47.2 Nutritional Referral for Obesity: Yes - Patient could benefit from structured weight loss program. - Physical Inactivity Physical Inactivity: None - walking as much as possible - Risk Stratification Risk Guidelines: Lowest Risk: Risk Factor for Hypertension, Risk Factor for Depression, Moderate Risk: Risk Factor for Dyslipidemia, Risk Factor for Diabetes, Highest Risk: Risk Factor for Smoking, Risk Factor for Obesity, Risk Factor for Sedentary Lifestyle - For Smoking Smoking Risk Guidelines: Smoking Low Risk: None or quit greater than 6 months ago. Smoking Moderate Risk: Smoker or quit 6 months or less ago. Smoking High Risk: Smoker - For Dyslipidemia Dyslipidemia Risk Guidelines: Low Risk: Moderate Risk: High Risk: 15-25% fat 25.1-29% fat >/= 30% fat. <7% sat fat 7-9% sat fat >9% sat fat. <150 mg chol 150-299 mg chol >/= 300 mg chol. LDL <100 LDL 100-129 LDL >/= 130. Chol/HDL ratio <5.0 Chol/HDL ratio 5.0-6.0 Chol/HDL ratio >6.0. Triglycerides <100 Triglycerides 100-149 Triglycerides >/= 150 - For Diabetes Mellitus Diabetes Risk Guidelines: Diabetes Low Risk: HgA1c <6.5% and/or FBG <120. Diabetes Moderate Risk: HgA1c 6.6-7.9% and/or FBG 120-180. Diabetes High Risk: HgA1c >/= 8% and/or FBG >180 - For Obesity/Overweight Obesity/Overweight Risk Guidelines: Obesity Low Risk: BMI <25.0. Obesity Moderate Risk: BMI 25-29.9. Obesity High Risk: BMI >/= 30.0 - For Hypertension Hypertension Risk Guidelines: Hypertension Low Risk: Systolic <120 and Diastolic <80. Hypertension Moderate Risk: Systolic 120-139 and Diastolic 80-89. Hypertension High Risk: Systolic >/= 140 and Diastolic >/= 90 - For Sedentary Lifestyle Sedentary Lifestyle Risk Guidelines: Sedentary Lifestyle Low Risk: >/= 1,500 kcal/week. Sedentary Lifestyle Moderate Risk: 700-1,499 kcal/week. Sedentary Lifestyle High Risk: < 700 kcal/week - For Depression Depression Risk Guidelines: Depression Low Risk: Not clinically depressed. Depression Moderate Risk: Mildly depressed. Depression High Risk: Clinically depressed - Family History Family History: Family History (Last Updated 11/10/17 @ 09:17 by Mayo Garces) Mother Cancer Tremor Social History - Smoking History Smoking Status: Current every day smoker Years Smokin Packs Smoked per Day: 1 - previous 3 PPD Hx Tobacco Use: Yes Hx Smoking Exposure: No - Alcohol Use Alcohol Usage: Yes - bi-annually - Substance Abuse Hx Substance Use: No - Occupation Occupation (List type of work in comments):: Retired - disability - Hobbies, Recreation, Social Activities Hobbies: Walking - travel, ride motorcycle in summer weather, Other Recreational Activities: I am able to engage in a few activities Marital Status - Status Marital Status: - Current Living Arrangements Living Environment:: Family - Children How many children do you have?: 5 - 3 step children, 2 biological Do any of your children live nearby?: Yes - Safety Do you feel safe in your surroundings?: Yes - Assistance Do you need any assistance at home?: none
--- NOTE | 2017-11-14 10:29 | CR.HP_ITS ---
CR - History & Physical - General Arrival date:: 11/14/17 Arrival time:: 10:20 Date of Admission: 11/14/17 Referring Physician: Dr. Oneal Her Primary Diagnosis: STEMI f/b status post coronary stent - History of Present Cardiac Event Onset Date: Enter Onset Date of cardiac illnesses in Comment field below [place]:: Yes - STEMI 10/26/2017 PTCA:: Yes - 10/26/2017 Type of Symptoms:: chest pain history of hypertension and smoking. She states she woke up and was having some pain in left jaw which eventually migrated to the chest and arm/shoulder area. Interventions with present event:: heart cath procedure Were there any complications?: none - Medications Home Medications: Ambulatory Orders Medication Instructions Recorded Albuterol Inhaler [Ventolin Hfa] 2 puff INHALATION Q4H PRN PRN 10/26/17 Aspirin E.C. [Ecotrin] 81 mg PO DAILY@0800 #30 tab 10/27/17 Tramadol HCl [Ultram] 50 mg PO 4X/DAY PRN #20 tab 10/27/17 atorvastatin 80 mg tablet 80 mg PO QHS #30 tab 11/10/17 carvedilol 6.25 mg tablet 6.25 mg PO BID #60 tab 11/10/17 clopidogrel 75 mg tablet 75 mg PO QDAY #30 tab 11/10/17 furosemide 20 mg tablet 20 mg PO QDAY PRN #30 tab 11/10/17 valsartan 80 mg tablet 80 mg PO DAILY #30 tab 11/10/17 - Allergies Allergies/Adverse Reactions: Allergies No Known Allergies Allergy (Verified 11/10/17 09:19) - Sleep Disorder Evaluation Hx of Sleep Apnea: Yes Do you snore loudly (louder than talking or can be heard through closed doors)? 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 Living Will: No Advance Directives Information Provided: No Advance Directives on File: No DNR Order?:: No Past Medical History - Problems and Co-Morbidities Problems & Co-Morbidities: Smoking - no pertinent family history provided., Dyslipidemia, Diabetes - considered borderline diabetic high glucose levels, Obesity, Hypertension, Sedentary Lifestyle - Past Medical Illness Past Medical Illness: Arthritis, Diabetes - borderline DM, Lung or Breathing Problems - unknown if diagnosed, Back Problems - degenerative disc disease, central tremors Other Medical Illnesses:: Current every day smoker and has been counselled by physician to complete smoking cessation. - Past Cardiac Illness Past Cardiac Illness: Ejection Fraction - 65% per LVEF during cath, Coronary Artery Disease, Previous PCI w/Stent - previous stents done in [place] 2001? - Other Other: Vision/Eye Problems - gets floaters occasionally - Cardiology Procedures/Interventions Cardiology Procedures/Interventions: Angioplasty, PCI w/Stenting, Heart Catheterization, Echocardiogram - Past Surgical History Surgical History: - - breast reduction, tubal ligation, history of gallstones Review of Systems - Review of Systems Hints: Right click = Denies (Slash). Left click = Reports ([place]) Review of Present Symptoms: Reports: Shortness of Breath at Rest, Shortness of Breath with Exertion, Operative Discomfort - Non-operative related discomfort/ soreness in chest but denied pain., Dizziness/Lightheadedness, Fatigue, Appetite - Special Diet - Low fat low cholesterol low sodium <2000mg sodium diet., Sleep - Normal. Denies: Appetite - Normal - not a whole lot of appetite , some days do not feel like eating. Risk Factor Assessment - Chief Complaint Chief Complaint: Patient is apleasent 56 year old female of Dr. Oneal Her who presentst o cardiac rehab today following recent STEMI (acute coronary syndrome) and subsequent coroanry stenting done on 10/26/2017. - Pulse Pulse Rate: 78 - SpO2 97% room air Pulse Rhythm: Regular - Hypertension How long have you been treated?: long time, even before last coronary stent in 1999. On medication(s)?: Yes Blood Pressure Sitting - Left Arm: 168/70 - Stress Stress: Home/Family - Blood Cholesterol/Lipids Total Cholesterol (mg/dL) Goal = less than 200 mg/dL: 171 HDL Cholesterol (mg/dL) Goal = less than 40 mg/dL: 37 LDL Cholesterol (mg/dL) Goal = less than 70 mg/dL: 112 Triglycerides (mg/dL) Goal = less than 150 mg/dL: 111 - Diabetes Diabetic History: Type II - considered borderline DM due to hyperglycemia Nutrition Referral for Diabetes: Yes - Obesity Height: 5 ft 1 in Weight:: 250 lb Weight in Pounds: 250.0 lbs Body Mass Index (BMI): 47.2 Nutritional Referral for Obesity: Yes - Patient could benefit from structured weight loss program. - Physical Inactivity Physical Inactivity: None - walking as much as possible - Risk Stratification Risk Guidelines: Lowest Risk: Risk Factor for Hypertension, Risk Factor for Depression, Moderate Risk: Risk Factor for Dyslipidemia, Risk Factor for Diabetes, Highest Risk: Risk Factor for Smoking, Risk Factor for Obesity, Risk Factor for Sedentary Lifestyle - For Smoking Smoking Risk Guidelines: Smoking Low Risk: None or quit greater than 6 months ago. Smoking Moderate Risk: Smoker or quit 6 months or less ago. Smoking High Risk: Smoker - For Dyslipidemia Dyslipidemia Risk Guidelines: Low Risk: Moderate Risk: High Risk: 15-25% fat 25.1-29% fat >/= 30% fat. <7% sat fat 7-9% sat fat >9% sat fat. <150 mg chol 150-299 mg chol >/= 300 mg chol. LDL <100 LDL 100-129 LDL >/= 130. Chol/HDL ratio <5.0 Chol/HDL ratio 5.0-6.0 Chol/HDL ratio >6.0. Triglycerides <100 Triglycerides 100-149 Triglycerides >/= 150 - For Diabetes Mellitus Diabetes Risk Guidelines: Diabetes Low Risk: HgA1c <6.5% and/or FBG <120. Diabetes Moderate Risk: HgA1c 6.6-7.9% and/or FBG 120-180. Diabetes High Risk: HgA1c >/= 8% and/or FBG >180 - For Obesity/Overweight Obesity/Overweight Risk Guidelines: Obesity Low Risk: BMI <25.0. Obesity Moderate Risk: BMI 25-29.9. Obesity High Risk: BMI >/= 30.0 - For Hypertension Hypertension Risk Guidelines: Hypertension Low Risk: Systolic <120 and Diastolic <80. Hypertension Moderate Risk: Systolic 120-139 and Diastolic 80-89. Hypertension High Risk: Systolic >/= 140 and Diastolic >/= 90 - For Sedentary Lifestyle Sedentary Lifestyle Risk Guidelines: Sedentary Lifestyle Low Risk: >/= 1 ,500 kcal/week. Sedentary Lifestyle Moderate Risk: 700-1,499 kcal/week. Sedentary Lifestyle High Risk: < 700 kcal/week - For Depression Depression Risk Guidelines: Depression Low Risk: Not clinically depressed. Depression Moderate Risk: Mildly depressed. Depression High Risk: Clinically depressed - Family History Family History: Family History (Last Updated 11/10/17 @ 09:17 by Mayo Garces) Mother Cancer Tremor Social History - Smoking History Smoking Status: Current every day smoker Years Smokin Packs Smoked per Day: 1 - previous 3 PPD Hx Tobacco Use: Yes Hx Smoking Exposure: No - Alcohol Use Alcohol Usage: Yes - bi-annually - Substance Abuse Hx Substance Use: No - Occupation Occupation (List type of work in comments):: Retired - disability - Hobbies, Recreation, Social Activities Hobbies: Walking - travel, ride motorcycle in summer weather, Other Recreational Activities: I am able to engage in a few activities Marital Status - Status Marital Status: - Current Living Arrangements Living Environment:: Family - Children How many children do you have?: 5 - 3 step children, 2 biological Do any of your children live nearby?: Yes - Safety Do you feel safe in your surroundings?: Yes - Assistance Do you need any assistance at home?: none
--- NOTE | 2017-11-14 10:37 | CR.ITP_ITS ---
Exercise - Initial Assessment - Visit Date of Eval: 11/14/17 - established initial ITP Session #:: 0 - Patient concerned about distance and cost (co-pay). She is checking with PFS here at [facility] and may consider [facility] which is closer to home. - Stages of Change Stages of Change:: Action - Exercise Prescription Mode:: Treadmill, Biodyne, Airdyne, NuStep Target Heart Rate:: 115-124 - Hypertension Do any of the following apply?: Yes Resting Blood Pressure:: 106/72 - Intervention Home Exercise/Activity Goal:: Sitting Time <3 hrs/day - Education Goals:: Warm-up, RPE EKLLY Scale, S/S, Safe Exercise, Self-Monitoring - Exercise Program Goals Exercise Program Goals: Aerobic Activity >30 min Nutrition - Initial Assessment - Program Goals Nutrition Program Goals: LDL <70. Total Cholesterol <200. HDL >45. Triglycerides <150. HgbA1C <7%. BMI <25 - Visit Date of Assessment:: 11/14/17 - established ITP - Stages of Change Stages of Change:: Action - Lipids Total Cholesterol (mg/dL) Goal = less than 200 mg/dL: 171 HDL Cholesterol (mg/dL) Goal = less than 45 mg/dL: 37 LDL Cholesterol (mg/dL) Goal = less than 70 mg/dL: 112 Triglycerides (mg/dL) Goal = less than 150 mg/dL: 111 - Diabetes Diabetes:: Yes Insulin: No - considered borderline DM Non-Insulin Dependent?: No Do you monitor your blood sugar at home?: No - Weight Management Height: 5 ft 1 in Weight:: 250 lb - Intervention Referral to dietitian:: Yes Referral to Diabetic Clinic:: Yes Will attend diet classes:: Yes - Education Gave educational materials for:: Signs & symptoms of hypoglycemia, Signs & symptoms of hyperglycemia, Relate diabetes to coronary artery disease, Healthy eating Tobacco - Initial Assessment - Program Goals Tobacco Program Goals: Complete smoking cessation. Attend education classes. Improve Knowledge Test score - Stage of Change Stages of Change:: Action - Learning Barriers Learning Barriers: Vision - described as floaters in vision, Ready to Learn - Family Support Do you have family support?: Yes - Tobacco Use Tobacco Use: Cigarettes How many cigarettes do you smoke per day?: 10 - former 3 packs per day Years Smokin Do you use smokeless tobacco?: No - Intervention Smoking Cessation Referral:: Yes Individual Education/Counseling:: Yes Education Schedule Given:: Yes - Education Gave educational material for:: Tobacco triggers, Coronary artery disease, Risk factors, Sexuality, Medical compliance, Cardiac A&P, Angina signs & symptoms Psychosocial - Initial Assess - Target Goals Target Goals: Assess presence or absence of depression. Using a valid screening tool, maximizes coping skills. Positive support system - Stages of Change Stages of Change:: Action - Psychosocial Test Tool Used:: HANDS Depression Questionnaire - Intervention PS - Interventions: Yes Attend Stress Management Classes, No Referral to Mental Health, No Referral to [facility] Case Management, No Referral to Physician, No Uses Stress Management Skills - Education Gave educational materials for:: Coping techniques, Signs & symptoms of depression, Stress management, Relaxation techniques - Patient/Program Goal Preventative Medication(s):: Aspirin, Clopidogrel, Statin/lipid - Assistive Devices Assistive Devices:: Cane - basically for balance wehn ambulating Fall Risk Assessed:: Yes Patient Health Questionnaire Initial Assessment 1. Little interest or pleasure in doing things: More than half the days 2. Feeling down, depressed, or hopeless: More than half the days 3. Trouble falling or staying asleep, or sleeping too much: More than half the days 4. Feeling tired or having little energy: Nearly every day 5. Poor appetite or overeating: More than half the days 6. Feeling bad about yourself -- or that you are a failure or have let yourself or your family down: More than half the days 7. Trouble concentrating on things, such as reading the newspaper or watching television: More than half the days 8. Moving or speaking so slowly that other people could have noticed. Or the opposite - being so fidgety or restless that you have been moving around a lot more than usual: Not at all 9. Thoughts that you would be better off , or of hurting yourself in some way: Not at all How difficult have these problems made it for you to do your work, take care of things at home, or get along with other people?: Somewhat difficult Total Score: 15 Knowledge Test - Check your knowledge Initial The #1 cause of in the [place] each year is:: Heart disease Which of the following is a common treatment for heart disease?: All of the above The arteries that feed the heart are called:: Femoral arteries HDL cholesterol is known as the good cholesterol.: False What disease increases your risk for heart disease?: Diabetes What food product raises blood cholesterol level the most?: Saturated fat The bad cholesterol in the blood is called:: HDL Hypertension is another word for:: High blood pressure A blood pressure reading of 148/88 is considered normal.: False Exercise will only benefit your health when your heart rate reaches a target level.: True Total Score:: 6 Self-Efficacy Initial Assessment We would like to know how confident you are in doing certain activities. Please select your confidence level for:: Select your confidence level for the following using the scale 1-10 where 1 is not at all confident and 10 is totally confident. Your score is the average of all 6 responses. Fatigue: How confident are you that you can keep the fatigue caused by your disease from interfering with the things you want to do? Select Number: 5 Physical Discomfort or Pain: How confident are you that you can keep the physical discomfort or pain of your disease from interfering with the things you want to do? Select Number: 3 Emotional Distress: How confident are you that you can keep the emotional distress caused by your disease from interfering with the things you want to do? Select Number: 4 Other Symptoms or Health Problems: How confident are you that you can keep other symptoms or health problems from interfering with the things you want to do? Select Number: 3 Different Tasks and Activities: How confident are you that you can do the different tasks and activities needed to manage your health condition so as to reduce your need to see a doctor? Select Number: 6 Medication: How confident are you that you can do things other than just taking medication to reduce how much your illness affects your everyday life? Select Number: 8 Total Score:: 4 Nutrition Survey - Nutrition Survey Instructions Scoring Instructions: Scoring is as follows: Yes = 1 points. No = 0 point. Patient score that is >/=12 is considered to be at potential nutritional risk and could benefit from a referral to a registered dietitian. - Nutrition Survey Initial Have you lost >10 lbs over the past 2 months without trying?: No Are you following a special diet at home for diabetes, low fat, or low salt?: Yes Are you interested in meeting with a dietitian for help understanding your diet? : No Do you eat less than 3 meals a day?: Yes Do you eat fatty meats (fleming, sausage, ribs, etc), fried foods, desserts, large amounts of salad dressings, margarine, butter, or cheese most days?: No Do you have food allergies? [Enter types in comment field]: No Do you eat in restaurants more than 3 times a week?: No Do you season food with salt, seasoning salt, or garlic salt?: Yes Do you used canned, boxed, frozen meals, or soups, seasoning packets?: Yes Total Score:: 4 Cardiac Rehabilitation Goals - Cardiac Rehab Goals Cardiac Rehabilitation Goals: 1. Maintain the individual as the primary focus of care. 2. To improve the patient's quality of life. 3. Identification of cardiac risk factors and provide cardiac risk factor management. 4. Enhance the psychosocial status of the patient. 5. Reconditioning enough to allow the patient to resume customary activities. 6. Control symptoms of cardiac disease - Scale Scale for measuring improvement of personal goals: Enter appropriate number in Comments. 2 = Unchanged. 3 = Slightly Better. 4 = Moderate Improvement. 5 = Met my Goal Initial Assessment Personal Goals: 30-day Re-assessment: Quit smoking (participate in smoking cessation, Improve management of stress and emotions, Improve energy level, Participate in home exercise program, Get back to work, or to resume activities faster, Improve knowledge of cardiac disease, Improve muscle strength and endurance, Improve diet and eating habits (eat healthier), Control risk factors (learn risk factor modification)
[2017-11-14 11:30] VITALS: BP 168/70; PULSE 78; BMI 47.2
[2017-11-14 11:37] VITALS: BP 106/72
== END ==
PROVIDERS: Family Provider Family Medicine; PCP Family Medicine; Visit Provider Internal Medicine Cardiovascular Disease
DX: I21.3 ST elevation (STEMI) myocardial infarction of unspecified site (principal); Z95.5 Presence of coronary angioplasty implant and graft

== ENCOUNTER → 2017-11-28 20:00 | Outpatient (CLI) | payer MEDICARE, SELFPAY | PROVIDERS: Family Provider Family Medicine; PCP Family Medicine; Visit Provider Nurse Practitioner Family | DX: G47.10 Hypersomnia, unspecified (principal); G47.33 Obstructive sleep apnea (adult) (pediatric) | CPT/HCPCS: 95811 ==

== ENCOUNTER → 2017-12-12 08:44 | Outpatient (CLI) | payer MEDICARE, SELFPAY ==
--- NOTE | 2017-12-12 08:49 | CDU_ITS ---
Reason For Study: Carotid bruit Rt. Velocities/BP Lt. Velocities/BP Prox CCA 89.7/22.9 cm/sec. Prox CCA 123.0/32.2 cm/sec. Mid CCA 97.9/33.4 cm/sec. Mid CCA 119.0/34.6 cm/sec. Dist CCA 83.3/28.7 cm/sec. Dist CCA 95.9/36.1 cm/sec. Prox ICA 92.6/30.5 cm/sec. Prox ICA 171.0/57.9 cm/sec. Mid ICA 90.9/27.1 cm/sec. Mid ICA 126.0/43.9 cm/sec. Dist ICA 97.3/33.4 cm/sec. Dist ICA 137.0/49.1 cm/sec. Rt. ICA/CCA = .99. Lt. ICA/CCA = 1.4. Prox ECA 182.0/34.0 cm/sec. Prox ECA 170.0/35.4 cm/sec. Rt. Vert. 66.3/17.0 cm/sec. Lt. Vert. 56.9/16.4 cm/sec. Right Extracranial There is homogeneous, smooth atherosclerotic plaque noted in the right common carotid artery. There is heterogeneous, irregular atherosclerotic plaque noted in the right internal carotid artery. There is heterogeneous, irregular atherosclerotic plaque noted in the right external carotid artery. Antegrade flow is noted in the right vertebral artery. Left Extracranial There is intimal thickening but no significant atherosclerotic plaque noted in the left common carotid artery. There is heterogeneous, irregular atherosclerotic plaque noted in the left internal carotid artery. There is homogeneous, smooth atherosclerotic plaque noted in the left external carotid artery. Antegrade flow is noted in the left vertebral artery. Procedure Carotid Duplex 35484. Exam performed in department. Interpretation Summary Mild (<50%) stenosis right extracranial internal carotid. Moderate (50-69%) stenosis left extracranial internal carotid. Flow within the vertebral arteries is antegrade bilaterally. Ordering Physician: Delfino Bonilla Referring Physician: Delfino Bonilla Performed By: Melia Monterroso RVT
--- NOTE | 2017-12-12 08:49 | ADUL_ITS ---
Reason For Study: Subclavian stenosis RIGHT Right Subclavian velocity = 130 cm/sec. Right Axillary velocity = 84.9 cm/sec. Right Brachial velocity = 99.8 cm/sec. Right Radial velocity = 33.8 cm/sec. Right Ulnar velocity = 88.8 cm/sec. Interpretation Summary 1. right arm with triphasic flow and no stenosis. Ordering Physician: Delfino Bonilla Referring Physician: Delfino Bonilla Performed By: Melia Monterroso RVT
--- NOTE | 2017-12-12 09:53 | CT_ITS ---
STUDY: CTA OF THE ABDOMINAL AORTA AND BILATERAL LOWER EXTREMITIES REASON FOR EXAM: Female, 57 years old. Subclavian stenosis, atherosclerosis of arteries. Pt had rt leg stent at one time, now removed. Hx of [place] 10/2017. HTN-rx controlled. Pre diabetic. RADIATION DOSAGE (If Supplied By Facility): CTDIvol = ( 8.36 ) mGy, DLP = ( 1760.66 ) mGycm TECHNIQUE: Axial CT angiography multi-detector data acquisition was obtained following intravenous administration of 100ml ml of Isovue 370 contrast. Axial images and MIP images were reconstructed from the axial data set. Post-processing of the angiographic images was performed, with multiplanar reformation and 3D reconstruction. Individualized dose optimization techniques were used for this CT. TECHNICAL QUALITY: Good COMPARISON: 9.22.17 Descriptors of Narrowing: None (0%) Mild (< 50%) Moderate (50-70%) Severe (70-90%) Subtotal/Total Occlusion (90-100%) Non-Evaluable (technically non-diagnostic FINDINGS: Solitary gallstone in the gallbladder. Stable left adrenal mass. Liver and spleen are unremarkable. Right kidney is malrotated. There is no hydronephrosis. Pancreas is within normal limits. Stool throughout the colon. The appendix is visualized and is normal. The uterus is normal. There are bilateral tubal ligation clips. Abdominal aorta: There are calcifications of the abdominal aorta. This is consistent for atherosclerotic disease. There is no abdominal aortic aneurysm. Celiac and superior mesenteric arteries: No demonstrated narrowing. Inferior mesenteric artery: No demonstrated narrowing. Right renal artery(arteries): There is moderate diffuse narrowing. Left renal artery(arteries): No demonstrated narrowing. Right common iliac artery: Occluded. Right external iliac artery: Occluded. Right internal iliac artery: There is moderate diffuse narrowing. Left common iliac artery: Stent is occluded Left external iliac artery: There is moderate diffuse narrowing. Left internal iliac artery: There is moderate diffuse narrowing. RIGHT LOWER EXTREMITY Right common femoral artery: No demonstrated narrowing. Right profundus femoris: No demonstrated narrowing. Right superficial femoral: No demonstrated narrowing. Right popliteal artery: No demonstrated narrowing. Right tibioperoneal trunk: No demonstrated narrowing. Right anterior tibial artery: No demonstrated narrowing. Right posterior tibial artery: No demonstrated narrowing. Right peroneal artery: No demonstrated narrowing. LEFT LOWER EXTREMITY Left common femoral artery: No demonstrated narrowing. Left profundus femoris: No demonstrated narrowing. Left superficial femoral: No demonstrated narrowing. Left popliteal artery: No demonstrated narrowing. Left tibioperoneal trunk: No demonstrated narrowing. Left anterior tibial artery: No demonstrated narrowing. Left posterior tibial artery: No demonstrated narrowing. Left peroneal artery: No demonstrated narrowing. CT/CTA Abd w/Runoff W/WO Contrast IMPRESSION: Cholelithiasis. Stable left adrenal mass. Right renal artery(arteries): There is moderate diffuse narrowing. Right common iliac artery: Occluded. Right external iliac artery: Occluded. 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 Right internal iliac artery: There is moderate diffuse narrowing. Left common iliac artery: Stent is occluded Left external iliac artery: There is moderate diffuse narrowing. Left internal iliac artery: There is moderate diffuse narrowing. Electronically Signed: Pool Benjamin MD at 23:49 EDT , Service support ,
--- NOTE | 2017-12-13 11:45 | LEAS ---
Arterial Study - Arterial Study Arterial Study: next Date of scan 12/12/[address] Bonilla History: Patient with claudication type symptoms Interpretation: Right lower extremity appears of normal pulsatile waveform noted the posterior tibial decreased dorsalis pedis with an ankle-brachial index 0.39 and posterior tib 0.3 through the dorsalis pedis. Next Left lower extremity with slight decreased waveform noted the posterior tib and dorsalis pedis with a REBECCA 0.48 of both vessels. Next Impression: 1. Right lower extremity with severe arterial occlusive disease with an REBECCA 0.39. 2. Left lower extremity with moderate arterial occlusive disease with an REBECCA 0.48
== END ==
PROVIDERS: Family Provider Family Medicine; PCP Family Medicine; Visit Provider Surgery Vascular Surgery
DX: I70.213 Atherosclerosis of native arteries of extremities with intermittent claudication, bilateral legs (principal); I77.1 Stricture of artery; R09.89 Other specified symptoms and signs involving the circulatory and respiratory systems
CPT/HCPCS: 75635; 93880; 93922; 93926; Q9967

== ENCOUNTER → 2018-01-04 12:50 | Outpatient (CLI) | payer MEDICARE, SELFPAY ==
--- NOTE | 2018-01-04 14:04 | CT_ITS ---
STUDY: LOW DOSE CT LUNG CANCER SCREENING REASON FOR EXAM: Female, 57 years old. 40 pack-year smoking history. RADIATION DOSAGE (If Supplied By Facility): CTDIvol = ( 3.40 ) mGy, DLP = ( 107.64 ) mGycm TECHNIQUE: No contrast was administered. Low dose technique was utilized (average mAS-38 and kVp 120). 1.25 mm axial source images with a slice interval of 1.25-mm were reconstructed in lung windows. 2.5 mm axial source images with a slice interval of 2.5-mm were reconstructed in lung windows. 5.0 mm axial source images with a slice interval of 5.0-mm were reconstructed in soft tissue windows. Nodule measured using lung windows on PACS and/or independent workstation with automated measurement of minimum and maximum diameter. Nodule measurement reported as average diameter rounded to the nearest whole number. Growth is defined as an increase ins size of greater than 1.5 mm. COMPARISON: None. NODULES: Total lung nodules (excluding granulomas): 0 Emphysema: No Endobronchial lesion: No Aorta: Normal Coronary arteries: Normal Heart: Normal in size Pulmonary artery: Normal Mediastinal nodes: None Other chest and abdominal findings: There are degenerative changes of the thoracic spine. CT/Low Dose CT Lung Screening IMPRESSION: Lung-RADS category 1 - Continue annual screening with LDCT in 12 months. IMPORTANT NOTES FOR USE: ACR Lung-RADS Version 1.0 Assessment Categories Release Date: December 02, 2013 Category: Coded 0-4 bases on nodule(s) with highest degree of suspicion. Negative screen is defined as categories 1 and 2; a positive screen is defined as categories 3 and 4. Category 3 and 4A nodules that are unchanged on interval CT should be coded as category 2, and individuals returned to screening in 12 months. Category 4X: Category 3 or 4 nodules with additional imaging findings that increase the suspicion of lung cancer, such as spiculation, GGN that doubles in size in 1 year, enlarged lymph notes, etc. Category Modifiers: S (significant finding unrelated to lung cancer) and C (prior history of treated lung cancer) may be added to the 0-4 Lung-RADS Electronically Signed: Tato Sierra DO at 9:15 EDT Tel [phone], Service support ,
--- NOTE | 2018-01-04 14:26 | PFTCOMP ---
COMPLETE PULMONARY FUNCTION TEST INTERPRETATION Brief HPI: Patient is a 57 year old female, currently under the care of Perla Crowell, who presents to [facility] for complete pulmonary function tests secondary to diagnosis of dyspnea on exertion. Respiratory therapist reports good effort and reproducible results. Interpretation: Forced expiration spirometry shows no large airways obstructive ventilatory defect with an FEV1 of 81% predicted. There is no significant bronchodilator response by ATS criteria. Spirograms are of good quality and plateau normally. The respiratory flow volume loop shows a normal pattern. Lung volumes by body plethysmography show a normal total lung capacity at 4.39 L, 97% predicted. All other lung volumes are within normal limits. Diffusion capacity by carbon monoxide is decreased at 61% predicted. The airway resistance is normal. No previous pulmonary function tests were available for review. Impression: Isolated defect in diffusing capacity consistent with a pulmonary vascular disorder.
--- NOTE | 2018-01-04 14:29 | PFTCOMP_ITS ---
COMPLETE PULMONARY FUNCTION TEST INTERPRETATION Brief HPI: Patient is a 57 year old female, currently under the care of Perla Crowell, who presents to [facility] for complete pulmonary function tests secondary to diagnosis of dyspnea on exertion. Respiratory therapist reports good effort and reproducible results. Interpretation: Forced expiration spirometry shows no large airways obstructive ventilatory defect with an FEV1 of 81% predicted. There is no significant bronchodilator response by ATS criteria. Spirograms are of good quality and plateau normally. The respiratory flow volume loop shows a normal pattern. Lung volumes by body plethysmography show a normal total lung capacity at 4.39 L , 97% predicted. All other lung volumes are within normal limits. Diffusion capacity by carbon monoxide is decreased at 61% predicted. The airway resistance is normal. No previous pulmonary function tests were available for review. Impression: Isolated defect in diffusing capacity consistent with a pulmonary vascular disorder.
== END ==
PROVIDERS: Family Provider Family Medicine; PCP Family Medicine; Visit Provider Nurse Practitioner Acute Care
DX: R06.09 Other forms of dyspnea (principal); Z12.2 Encounter for screening for malignant neoplasm of respiratory organs; Z87.891 Personal history of nicotine dependence; Z72.0 Tobacco use
CPT/HCPCS: 94060; 94726; 94729; G0297

== ENCOUNTER → 2018-01-05 10:33 | Outpatient (CLI) | payer MEDICARE, SELFPAY ==
[2018-01-05 11:10] VITALS: PULSE 103; PULSE 110; PULSE 111; PULSE 113; PULSE 114; PULSE 115; PULSE 97; O2SAT 98; O2SAT 99
--- NOTE | 2018-01-05 12:12 | PCM.PSN.6M ---
PSN 6 Minute Walk Test - 6 Minute Walk Test 6 Minute Walk Test: 6 Minute Walk Test PSN:6-Minute Walk Test Start: 01/05/18 11:10 Freq: Status: Active Protocol: RESP.6MINW Document 01/05/18 11:10 ACE (Rec: 01/05/18 11:12 ACE [id number]) 6 Minute Walk Test Date Performed 01/05/18 Time Performed 10:55 Height 5 ft 2 in Weight: 113.398 kg Weight in Pounds 250.[address]: Perla Crowell Assistive device used: Cane Pre-test Oxygen Delivery Method Room Air Pulse Ox (%) 98 Pulse Rate (60-100 beats/min) 103 H Dyspnea Victoriano Scale (0-10) 0.5 Exertion Victoriano Scale (6-20) 6 1st minute Oxygen Delivery Method Room Air Pulse Ox (%) 99 Pulse Rate (60-100 beats/min) 103 H 2nd minute Oxygen Delivery Method Room Air Pulse Ox (%) 99 Pulse Rate (60-100 beats/min) 110 H 3rd minute Oxygen Delivery Method Room Air Pulse Ox (%) 99 Pulse Rate (60-100 beats/min) 111 H 4th minute Oxygen Delivery Method Room Air Pulse Ox (%) 99 Pulse Rate (60-100 beats/min) 115 H Number of Rests Taken 1 5th minute Oxygen Delivery Method Room Air Pulse Ox (%) 98 Pulse Rate (60-100 beats/min) 114 H 6th minute Oxygen Delivery Method Room Air Pulse Ox (%) 98 Pulse Rate (60-100 beats/min) 113 H Dyspnea Victoriano Scale (0-10) 4 Exertion Victoriano Scale (6-20) 15 Post-test Oxygen Delivery Method Room Air Pulse Ox (%) 99 Pulse Rate (60-100 beats/min) 97 Full Laps Walked 10 Partial Lap, Number of Tiles Walked 42 Total Distance Walked (ft) 632 - Interpretation Interpretation: The patient was able to ambulate 632 feet over the course of 6 minutes on room air with the assistance of a cane and one break. No significant desaturations were noted. Patient did have persistent tachycardia. These findings are consistent with deconditioning and musculoskeletal limitations. - Recommendations Recommendations: No supplemental oxygen is indicated at this time.
--- NOTE | 2018-01-05 12:15 | WT_ITS ---
PSN 6 Minute Walk Test - 6 Minute Walk Test 6 Minute Walk Test: 6 Minute Walk Test PSN:6-Minute Walk Test Start: 01/05/18 11: 10 Freq: Status: Active Protocol: RESP.6MINW Document 01/05/18 11:10 ACE (Rec: 01/05/18 11:12 ACE [id number]) 6 Minute Walk Test Date Performed 01/05/18 Time Performed 10:55 Height 5 ft 2 in Weight: 113.398 kg Weight in Pounds 250.[address]: Perla Crowell Assistive device used: Cane Pre-test Oxygen Delivery Method Room Air Pulse Ox (%) 98 Pulse Rate (60-100 beats/min) 103 H Dyspnea Victoriano Scale (0-10) 0.5 Exertion Victoriano Scale (6-20) 6 1st minute Oxygen Delivery Method Room Air Pulse Ox (%) 99 Pulse Rate (60-100 beats/min) 103 H 2nd minute Oxygen Delivery Method Room Air Pulse Ox (%) 99 Pulse Rate (60-100 beats/min) 110 H 3rd minute Oxygen Delivery Method Room Air Pulse Ox (%) 99 Pulse Rate (60-100 beats/min) 111 H 4th minute Oxygen Delivery Method Room Air Pulse Ox (%) 99 Pulse Rate (60-100 beats/min) 115 H Number of Rests Taken 1 5th minute Oxygen Delivery Method Room Air Pulse Ox (%) 98 Pulse Rate (60-100 beats/min) 114 H 6th minute Oxygen Delivery Method Room Air Pulse Ox (%) 98 Pulse Rate (60-100 beats/min) 113 H Dyspnea Victoriano Scale (0-10) 4 Exertion Victoriano Scale (6-20) 15 Post-test Oxygen Delivery Method Room Air Pulse Ox (%) 99 Pulse Rate (60-100 beats/min) 97 Full Laps Walked 10 Partial Lap, Number of Tiles Walked 42 Total Distance Walked (ft) 632 - Interpretation Interpretation: The patient was able to ambulate 632 feet over the course of 6 minutes on room air with the assistance of a cane and one break. No significant desaturations were noted. Patient did have persistent tachycardia. These findings are consistent with deconditioning and musculoskeletal limitations. - Recommendations Recommendations: No supplemental oxygen is indicated at this time.
== END ==
PROVIDERS: Family Provider Family Medicine; PCP Family Medicine; Visit Provider Nurse Practitioner Acute Care
DX: R06.09 Other forms of dyspnea (principal)
CPT/HCPCS: 94618

== ENCOUNTER → 2018-10-22 08:58 | Outpatient (CLI) | payer MEDICARE, SELFPAY ==
[2018-09-17 13:21] VITALS: BMI 49.0
[2018-10-22 10:40] LABS: AST(SGOT) 19 U/L (15-37); Alanine Aminotransfer ALT/SGPT 26 U/L (13-56); Albumin, Serum 3.6 g/dL (3.2-5.0); Alkaline Phosphatase 120 U/L (45-117); Bilirubin, Direct 0.11 mg/dL (0.00-0.30); Cholesterol 164 mg/dL (200); Globulin 3.9 g/dL (2.2-4.2); High Density Lipoprotein 52 mg/dL; Protein, Total 7.5 g/dL (6.4-8.2); Triglycerides 169 mg/dL; Very Low Density Lipoprotein 34 mg/dL (5-40)
== END ==
PROVIDERS: Family Provider Family Medicine; PCP Family Medicine; Referring Provider Internal Medicine Cardiovascular Disease; Visit Provider Internal Medicine Cardiovascular Disease
DX: I10 Essential (primary) hypertension (principal); I25.10 Atherosclerotic heart disease of native coronary artery without angina pectoris
CPT/HCPCS: 36415; 80061; 80076

== ENCOUNTER → 2019-07-25 18:03 | Outpatient (CLI) | payer MEDICARE, SELFPAY ==
[2019-07-22 09:49] VITALS: BMI 50.6
--- NOTE | 2019-07-25 18:09 | CT_ITS ---
STUDY: LOW DOSE CT LUNG CANCER SCREENING REASON FOR EXAM: Female, 58 years old. RADIATION DOSAGE (If Supplied By Facility): CTDIvol = ( 4.02 ) mGy, DLP = ( 133.41 ) mGycm TECHNIQUE: No contrast was administered. Low dose technique was utilized (average mAS-38 and kVp 120). 1.25 mm axial source images with a slice interval of 1.25-mm were reconstructed in lung windows. 2.5 mm axial source images with a slice interval of 2.5-mm were reconstructed in lung windows. 5.0 mm axial source images with a slice interval of 5.0-mm were reconstructed in soft tissue windows. Nodule measured using lung windows on PACS and/or independent workstation with automated measurement of minimum and maximum diameter. Nodule measurement reported as average diameter rounded to the nearest whole number. Growth is defined as an increase ins size of greater than 1.5 mm. COMPARISON: None. FINDINGS: Lungs, pleura: Pulmonary nodules: None. No pneumonia, edema, or acute abnormality in the lungs. No pleural effusion. No pneumothorax. Heart and great vessels: Heart size normal. No aneurysm of the thoracic aorta. Mediastinum: No adenopathy or mass or hematoma. Coronary artery atherosclerosis. Lipomatous hypertrophy of the interatrial septum. Osseous:No fracture or acute osseous abnormality. Chest wall: No concerning findings. Upper abdomen: No acute findings. CT/Low Dose CT Lung Screening IMPRESSION: Lung RADS category 1. Negative study. Continue annual screening. IMPORTANT NOTES FOR USE: ACR Lung-RADS Version 1.0 Assessment Categories Release Date: December 02, 2013 Category: Coded 0-4 bases on nodule(s) with highest degree of suspicion. Negative screen is defined as categories 1 and 2; a positive screen is defined as categories 3 and 4. Category 3 and 4A nodules that are unchanged on interval CT should be coded as category 2, and individuals returned to screening in 12 months. Category 4X: Category 3 or 4 nodules with additional imaging findings that increase the suspicion of lung cancer, such as spiculation, GGN that doubles in size in 1 year, enlarged lymph notes, etc. Category Modifiers: S (significant finding unrelated to lung cancer) and C (prior history of treated lung cancer) may be added to the 0-4 Lung-RADS Electronically Signed: Pankaj Vega, at 21:48 EST Tel , Service support ,
== END ==
PROVIDERS: Family Provider Family Medicine; PCP Family Medicine; Referring Provider Nurse Practitioner Acute Care; Visit Provider Nurse Practitioner Acute Care
DX: F17.210 Nicotine dependence, cigarettes, uncomplicated (principal); F17.200 Nicotine dependence, unspecified, uncomplicated
CPT/HCPCS: G0297